=== PATIENT | male | born 1975 | race Caucasian/White ===

== ENCOUNTER 2021-06-27 08:47 | Outpatient (CLI) | payer OTHER, SELFPAY ==
--- NOTE | 2021-06-27 09:10 | EST_ITS ---
Patient Info Name: Kirill De La Cruz Age: 46 years : 1975 Gender: Male Ht: 71 in Wt: 285 lbs BSA: 2.60 m2 HR: 85 bpm BP: 150 / 96 mmHg Heart Rhythm: Sinus Rhythm Exam Date: 06/27/2021 9:37 AM Exam Location: [facility] Stress Patient Status: Outpatient Admit Date: 06/27/2021 Staff Ordering Physician: Trino Mijares MD Attending Provider: Trino Mijares MD Exercise Technologist: Anisa Becker CT Exercise Physician: Chano Mondragon DO Exam Type: CA stress test treadmill Study Info Indications R06.02 - Shortness of breath Summary 1. 1. Negative Carmine exercise stress test for ischemic ST changes by ECG criteria. 2. 2. Reduced functional capacity, achieving 10 METs of workload. 3. 3. Baseline hypertension. 4. 4. Appropriate HR response to exercise. 5. 5. Appropriate HR recovery at 1 minute post exercise. 6. 6. No imaging with stress testing. 7. 7. Patient informed of the above results. Protocol: Carmine Stress ECG Details Stage: REST Duration (min): 3 min : 56 sec Speed (mph): 0.0 Grade (%): 0 HR (bpm): 84 SBP (mmHg): 150 DBP (mmHg): 96 METS: --- Stage: REST Duration (min): 5 min : 42 sec Speed (mph): 0.0 Grade (%): 0 HR (bpm): --- SBP (mmHg): 150 DBP (mmHg): 96 METS: --- Stage: STAGE 1 Duration (min): 1 min : 0 sec Speed (mph): 1.7 Grade (%): 10 HR (bpm): 113 SBP (mmHg): 150 DBP (mmHg): 96 METS: --- Stage: STAGE 1 Duration (min): 2 min : 0 sec Speed (mph): 1.7 Grade (%): 10 HR (bpm): 123 SBP (mmHg): 150 DBP (mmHg): 96 METS: --- Stage: STAGE 1 Duration (min): 3 min : 0 sec Speed (mph): 1.7 Grade (%): 10 HR (bpm): 122 SBP (mmHg): 169 DBP (mmHg): 64 METS: --- Stage: STAGE 2 Duration (min): 1 min : 0 sec Speed (mph): 2.5 Grade (%): 12 HR (bpm): 131 SBP (mmHg): 169 DBP (mmHg): 64 METS: --- Stage: STAGE 2 Duration (min): 2 min : 0 sec Speed (mph): 2.5 Grade (%): 12 HR (bpm): 138 SBP (mmHg): 165 DBP (mmHg): 58 METS: --- Stage: STAGE 2 Duration (min): 3 min : 0 sec Speed (mph): 2.5 Grade (%): 12 HR (bpm): 144 SBP (mmHg): 165 DBP (mmHg): 58 METS: --- Stage: STAGE 3 Duration (min): 1 min : 0 sec Speed (mph): 3.4 Grade (%): 14 HR (bpm): 153 SBP (mmHg): 192 DBP (mmHg): 87 METS: --- Stage: STAGE 3 Duration (min): 2 min : 0 sec Speed (mph): 3.4 Grade (%): 14 HR (bpm): 160 SBP (mmHg): 192 DBP (mmHg): 87 METS: --- Stage: STAGE 1 Duration (min): 3 min : 0 sec Speed (mph): 1.7 Grade (%): 10 HR (bpm): 122 SBP (mmHg): 169 DBP (mmHg): 64 METS: --- Stage: STAGE 2 Duration (min): 3 min : 0 sec Speed (mph): 2.5 Grade (%): 12 HR (bpm): 144 SBP (mmHg): 165 DBP (mmHg): 58 METS: --- Stage:
== END 2021-06-27 08:48 | disposition home or self-care (01) ==
PROVIDERS: PCP Family Medicine; Visit Provider Family Medicine
DX: R06.00 Dyspnea, unspecified (principal)
CPT/HCPCS: 93017

== ENCOUNTER 2024-12-25 14:43 | Emergency (ER) | payer OTHER, SELFPAY ==
[2024-12-25 14:44] VITALS: BP 187/102; PULSE 106; RESP 18; TEMP 36.4; O2SAT 97
--- OUTSIDE RECORDS SUMMARY | 2024-12-25 14:45 | XMS_ITS | Clinical Summary ---
Author Organization [facility] Address [address] [place] [address] Care Team Providers Care Wafer Polishing Worker Name Role Phone No, Physician Primary Care Provider [phone] Allergies No known active allergies Medications diazePAM (VALIUM) 5 mg tablet Take 2 tablets (10 mg total) by mouth 4 (four) times a day as needed for anxiety (For withdrawal symptoms) for 3 days, THEN 2 tablets (10 mg total) 3 (three) times a day as needed for anxiety (For withdrawal symptoms) for 3 days, THEN 2 tablets (10 mg total) 2 (two) times a day as needed for anxiety (For withdrawal symptoms) for 3 days, THEN 2 tablets (10 mg total) as needed for anxiety (For withdrawal symptoms) for up to 3 days. 60 tablet 5 Active ondansetron ODT (ZOFRAN-ODT) 4 mg disintegrating tablet Take 1 tablet (4 mg total) by mouth every 8 (eight) hours as needed for nausea or vomiting 20 tablet 5 Active Social History Tobacco Use Types Packs/Day Years Used Date Smoking Tobacco: Never Assessed Personal Safety Answer Date Recorded Have you ever been in or are you currently in a harmful physical or emotional relationship or is someone making you feel afraid or unsafe? 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 Gender Identity Not on file Sexual Orientation Not on file Last Filed Vital Signs Vital Sign Reading Time Taken Comments Blood Pressure 129/85 03/28/2024 11:58 AM ROVER TENDER Pulse 78 03/28/2024 11:58 AM ROVER TENDER Temperature 36.7 C (98.1 F) 03/28/2024 8:03 AM ROVER TENDER Respiratory Rate 16 03/28/2024 11:58 AM ROVER TENDER Oxygen Saturation 96% 03/28/2024 11:58 AM ROVER TENDER Inhaled Oxygen Concentration - - Weight 122.5 kg (270 lb) 03/28/2024 8:03 AM ROVER TENDER Height - - Body Mass Index - - Plan of Treatment Health Maintenance Due Date Last Done Comments Colon Cancer Screening-Colonoscopy 1975 Depression Screening 1975 Hepatitis C Screening 1975 Prostate Cancer Screening-PSA 1975 DTaP/Tdap/Td Vaccine (1 - Tdap) 1986 Hepatitis B Screening 1993 Regular Well Visit/Exam 18-64 1993 Pneumococcal vaccine <65 (1 of 2 - PCV) 1994 Influenza Vaccine (#1) 2024 Insurance [facility] CHOICE PLUS [facility] [place] [address] Care Teams Wafer Polishing Worker Relationship Specialty Start Date End Date No, Physician PCP - General 03/28/24
--- OUTSIDE RECORDS SUMMARY | 2024-12-25 14:45 | XMS_ITS | Clinical Summary ---
Author Organization [facility] Address [address] [place] [address] Care Team Providers Care Six Sigma Project Manager Name Role Phone Unavailable Primary Care Provider Unavailabl e Source Comments [facility],non-owned Affiliates and Associated Physician Practices is amultiple site organization consisting of ambulatory clinics and hospital sitesin [place], [place], [place] and [place]. This disclosure is being madepursuant to the Care Everywhere program and may not contain all information available regarding this patient. Last updated 17.[facility] Allergies No known active allergies Medications * Be aware that medications may not be up to date on this document. Alwaysverify current medications with the patient. aspirin (ASPIRIN) 81 MG tablet Take 81 mg by mouth once daily. Active lisinopril (PRINIVIL; ZESTRIL) 10 MG tablet Take 1 Tab by mouth 2 times daily. 60 Tab 11 10/22/2013 Active atorvastatin (LIPITOR) 40 MG tablet 12/26/2014 Active hydrochlorothiaz eagle (HYDRODIURIL) 25 MG tablet 12/09/2014 Active famotidine (PEPCID) 40 MG tabletIndication s:Gastroesophage al reflux disease without esophagitis 1 Tab once daily 30 Tab 11 05/30/2016 Active DEXILANT 60 MG capsuleIndicatio ns:Gastroesophag eal reflux disease, esophagitis presence not specified TAKE ONE CAPSULE BY MOUTH DAILY 30 capsule 09/01/2017 Active Active Problems Problem Noted Date Diagnosed Date GERD (gastroesophageal reflux disease) 3 HTN (hypertension) Family History Medical History Relation Name Comments Allergies Maternal Grandmother Relation Name Status Comments Maternal Grandmother Social History Tobacco Use Types Packs/Day Years Used Date Smoking Tobacco: Some Days Cigars Alcohol Use Standard Drinks/Week Comments Yes 0 (1 standard drink = 0.6 oz pur e alcohol) RARE Sex and Gender Information Value Date Recorded Sex Assigned at Not on file 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 Gender Identity Not on file Sexual Orientation Not on file Last Filed Vital Signs Vital Sign Reading Time Taken Comments Blood Pressure 98/70 05/30/2016 6:48 AM CDT Pulse 80 10/22/2013 11:49 AM CDT Temperature - - Respiratory Rate 20 04/24/2010 12:16 PM KINDERGARTEN INSTRUCTIONAL ASSISTANT Oxygen Saturation 98% 10/22/2013 11:49 AM CDT Inhaled Oxygen Concentration - - Weight 117.9 kg (260 lb) 05/30/2016 6:48 AM CDT Height 180.3 cm (5' 11) 05/30/2016 6:48 AM CDT Body Mass Index 36.26 05/30/2016 6:48 AM CDT Plan of Treatment Health Maintenance Due Date Last Done Comments COLOGUARD (AGES 45-75) - COL ON CA SCREENING 1975 COLON MONITORING 1975 COLONOSCOPY - COLON CA SCREENING 1975 CT COLONOGRAPHY - COLON CA SCREENING 1975 Colorectal Cancer Screening 1975 FIT - COLON CA SCREENING 1975 FLEX SIG - COLON CA SCREENING 1975 HIV SCREENING 1990 HEPATITIS C SCREENING 03/16/1993 DTAP/TDAP/TD VACCINES (1 - Tdap) 1994 HEPATITIS B VACCINE (1 of 3 - 19+ 3-dose series) 1994 DEPRESSION SCREENING 02/18/2024 COVID-19 VACCINE (1 - 2023-2 5 season) 2024 INFLUENZA VACCINE (#1) 2024 ZOSTER VACCINE (1 of 2) 2025 HIB VACCINE Aged Out No longer eligi ble based on patient's age to complete this topic HPV VACCINE Aged Out No longer eligi ble based on patient's age to complete this topic MENINGOCOCCAL (Group B) VACC INE SHARED DECISION-MAKING Aged Out No longer eligibl e based on patient's age to complete this topic MENINGOCOCCAL GROUPS A/C/Y/W VACCINE Aged Out No longer eligible b ased on patient's age to complete this topic Insurance
--- NOTE | 2024-12-25 16:38 | PC.NURSE ---
pt seen ambulating out of dept prior to pt room assignment
--- OUTSIDE RECORDS SUMMARY | 2024-12-25 16:42 | XMS_ITS | Clinical Summary ---
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 Gender Identity Not on file Sexual Orientation Not on file Last Filed Vital Signs Vital Sign Reading Time Taken Comments Blood Pressure 129/85 03/28/2024 11:58 AM DEMOLITION CRANE OPERATOR Pulse 78 03/28/2024 11:58 AM DEMOLITION CRANE OPERATOR Temperature 36.7 C (98.1 F) 03/28/2024 8:03 AM DEMOLITION CRANE OPERATOR Respiratory Rate 16 03/28/2024 11:58 AM DEMOLITION CRANE OPERATOR Oxygen Saturation 96% 03/28/2024 11:58 AM DEMOLITION CRANE OPERATOR Inhaled Oxygen Concentration - - Weight 122.5 kg (270 lb) 03/28/2024 8:03 AM DEMOLITION CRANE OPERATOR Height - - Body Mass Index - - Plan of Treatment Health Maintenance Due Date Last Done Comments Colon Cancer Screening-Colonoscopy 1975 Depression Screening 1975 Hepatitis C Screening 1975 Prostate Cancer Screening-PSA 1975 DTaP/Tdap/Td Vaccine (1 - Tdap) 1986 Hepatitis B Screening 1993 Regular Well Visit/Exam 18-64 1993 Pneumococcal vaccine <65 (1 of 2 - PCV) 1994 Influenza Vaccine (#1) 2024 Insurance [facility] Address: [place] [address] [facility] Address: [facility] [address] [place] [address] Care Teams Gas Cutter Relationship Specialty Start Date End Date No, Physician PCP - General 03/28/24
--- OUTSIDE RECORDS SUMMARY | 2024-12-25 16:42 | XMS_ITS | Clinical Summary ---
Author Organization [facility] Address [address] [place] [address] Care Team Providers Care Chefs Name Role Phone Unavailable Primary Care Provider Unavailabl e Source Comments [facility],non-owned Affiliates and Associated Physician Practices is amultiple site organization consisting of ambulatory clinics and hospital sitesin [place], [place], [place] and [place]. This disclosure is being madepursuant to the Care Everywhere program and may not contain all information available regarding this patient. 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
[2024-12-25] MEDS: SODIUM CHLORIDE 0.9% IV 1,000 ML 999 ML IV CONT (17:25)
[2024-12-25] MEDS: KETOROLAC 30 MG/ML VIAL (*BKC) IV PUSH (17:26)
[2024-12-25] MEDS: diazePAM INJ (*CRX) 10 MG/2 ML SYRINGE 5 MG IV PUSH (17:26)
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
== END 2024-12-25 19:04 | disposition home or self-care (01) ==
PROVIDERS: Emergency Provider Emergency Medicine; PCP Family Medicine
DX: M54.42 Lumbago with sciatica, left side (principal); G47.33 Obstructive sleep apnea (adult) (pediatric); Z99.89 Dependence on other enabling machines and devices; K21.9 Gastro-esophageal reflux disease without esophagitis; E78.2 Mixed hyperlipidemia; I10 Essential (primary) hypertension; E66.9 Obesity, unspecified; Z68.39 Body mass index [BMI] 39.0-39.9, adult; G89.29 Other chronic pain
CPT/HCPCS: 96361; 96374; 96375; 99284; J1885; J3360; J7030